=== PATIENT | male | born 1935 | race Caucasian/White ===

== ENCOUNTER 2017-03-01 12:45 | Inpatient (IN) | payer MEDICARE, BC ==
[~2017-03-01] VITALS: Ht 182.9 cm; Wt 86.5 kg
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
--- NOTE | ~2017-03-01 | OR ---
PATIENT'S NAME: CHANTE CAMARENA [facility] AGE: 82 Y [address] ROOM: [address] [address] LOCATION: [facility] ADMIT DATE: 03/01/2017 OR/Procedure Report DISCHARGE DATE: FAMILY PHYSICIAN: PHYSICIAN, UNKNOWN ATTENDING PHYSICIAN: TEJ JI SURGEON: Shaun Garcia MD MOUNTED POLICE OFFICER: None. DATE OF PROCEDURE: 03/02/2017 PREOPERATIVE DIAGNOSIS: Intertrochanteric fracture, right hip. POSTOPERATIVE DIAGNOSIS: Intertrochanteric fracture, right hip. PROCEDURE PERFORMED: Open reduction and internal fixation of right hip intertrochanteric fracture with intramedullary device (gamma nail). SURGEON: Shaun Garcia M.D. ANESTHESIA: Spinal. ESTIMATED BLOOD LOSS: Less than 100 mL. IMPLANTS: Synthes 125-degree mid-length trochanteric femoral nail with 40 mm distal interlocking screw. DRAINS: None. SPECIMEN: None. COMPLICATIONS: None. INDICATION FOR PROCEDURE: Please refer to my separately dictated consultation note. The patient presents with a right hip intertrochanteric fracture. Operative and nonoperative options have been reviewed. Potential adverse sequelae of the injury itself have been reviewed. Risks, benefits, limitations, and indications for surgery have been thoroughly reviewed and informed consent has been granted. We have specifically reviewed risks and implications of the following: Infection, malunion, nonunion, deep venous thrombosis, pulmonary embolism, mortality, neurovascular complications, blood transfusion risks, decubitus ulcer formation, pneumonia, avascular necrosis, and the potential need for further surgery (including the potential need for salvage with hip hemiarthroplasty versus total hip arthroplasty). We have discussed the necessity for 2 months of restricted weightbearing postoperatively. A preoperative internal medicine consultation has been obtained, and the patient has been medically cleared for surgery. PATIENT'S NAME: CHANTE CAMARENA [facility] AGE: 82 Y [address] ROOM: [address] [address] LOCATION: [facility] ADMIT DATE: 03/01/2017 OR/Procedure Report DISCHARGE DATE: FAMILY PHYSICIAN: PHYSICIAN, UNKNOWN ATTENDING PHYSICIAN: TEJ JI DESCRIPTION OF PROCEDURE: The patient was positioned supine on the fracture table after administration of anesthesia and prophylactic antibiotics. The correct side and anticipated procedure were confirmed via a verbal timeout including myself, the lye peel operator, and the circulating nurse. A well-padded groin post was placed. Both feet and ankles were well padded. The left foot was placed into a stirrup-type leg wick. The right foot was placed into a traction boot. Under fluoroscopic guidance, gentle longitudinal traction and internal rotation were applied across the fracture site through the right foot until a suitable reduction had been confirmed under AP and lateral fluoroscopic imaging. The lateral aspect of the right hip and thigh were scrubbed, prepped, and draped with vigilant sterile technique. The tip of the right greater trochanter was approached through a 5 cm direct lateral longitudinal incision. The iliotibial band was sharply divided longitudinally in line with the overlying skin incision. The tip of the right greater trochanter was palpated, and a cannulated awl was utilized to access the intramedullary canal of the proximal femur through the tip of the right greater trochanter. A ball tipped guidewire was placed through the awl and across the fracture site under fluoroscopic guidance, and the awl was subsequently removed. The cannulated entrance reamer was utilized through the appropriate soft tissue guide. The gamma nail was seated to the appropriate depth over the guidewire, and the guidewire was extracted. Fluoroscopic imaging confirmed appropriate position of the gamma nail. The outrigger guide and guide cannula were subsequently utilized to place a threaded-tipped guidewire centrally within the right femoral head and neck through a separate direct lateral 2 cm longitudinal incision. Appropriate position of the guidewire was confirmed under AP and lateral fluoroscopic imaging. Appropriate depth for the lag screw was measured. The cannulated reamer was set to the appropriate depth and fully seated through the appropriate soft tissue guide. The lag screw was seated to the appropriate depth under AP and lateral fluoroscopic guidance. The anti-rotational set screw was deployed. The outrigger guide and cannula were subsequently utilized to place the distal interlocking screw through a separate 5 mm direct lateral longitudinal incision. AP, lateral, and oblique fluoroscopic imaging of the right hip and right proximal femur confirmed appropriate position of all hardware and maintenance of an appropriate reduction of the fracture. PATIENT'S NAME: CHANTE CAMARENA [facility] AGE: 82 Y [address] ROOM: [address] [place] [id number] LOCATION: [facility] ADMIT DATE: 03/01/2017 OR/Procedure Report DISCHARGE DATE: FAMILY PHYSICIAN: PHYSICIAN, UNKNOWN ATTENDING PHYSICIAN: TEJ JI Each of the 3 incisions was thoroughly irrigated with bacteriostatic saline lavage. The fascia was closed with simple deep interrupted 0 Vicryl sutures. Each of the incisions was closed with superficial buried interrupted 2-0 Vicryl sutures and surgical gaviota. The dressings consisted of Xeroform gauze, sterile gauze, and occlusive tape. There were no complications. The patient was carefully transferred off the fracture table and transported to the postanesthesia care unit in stable condition. MD RAVIN DIOP/felice /[id number] d: 03/02/17 1147 t: 03/16/17 2144, OPERATIVE SUMMARY
--- NOTE | ~2017-03-01 | DS ---
PATIENT'S NAME: [facility]TE [facility] AGE: 82 Y [address] ROOM: [id number] [place], [place] [address] LOCATION: [facility] ADMIT DATE: 03/01/2017 Discharge Summary DISCHARGE DATE: 03/05/2017 FAMILY PHYSICIAN: Vicki Sharpe MD ATTENDING PHYSICIAN: Cecil Noriega CONSULTING PHYSICIANS: Shaun Garcia MD. PRIMARY CARE PROVIDER: Vicki Sharpe MD and Dr. Bautista. DISCHARGE DIAGNOSES: 1. Right hip fracture, status post open reduction internal fixation. 2. Diabetes mellitus type 2 with hyperglycemia. 3. Dyslipidemia. 4. Essential hypertension. 5. History of DVT. 6. Long-term anticoagulation, Coumadin. HOSPITAL COURSE: Please refer to admitting history and physical as dictated by Dr. Noriega. Briefly, the patient was admitted to [facility] after he sustained an injury with right hip fracture. Dr. Garcia was consulted. It was felt as though he should proceed with an ORIF of his right hip. The patient was on Coumadin therefore received one bag of FFP. The patient underwent ORIF of the right hip on 03/02/2017. He did well postoperatively. He was given 10 mg of Coumadin in Recovery, then resumed his home Coumadin dosing allowing his INR to trend upward. He was also placed on Lovenox 40 mg subcu for DVT prophylaxis. He is placed on an ADA diet. Postoperatively, he did have difficulty with pain. Physical Therapy and Occupational Therapy did see the patient. He did need encouragement to move. He was started on MiraLAX and Colace for his bowels. On 03/04/2017, he did develop postop abdominal distention. Abdominal x-ray showed a large amount of air and fecal material with no definite obstruction. He was given Dulcolax suppository and did have large bowel movements prior to discharge. It was felt as though he should have another Dulcolax suppository upon admit to [facility]. It was recommended to continue daily PT, INRs. His sugars were not well controlled. His metformin was increased to 1000 mg twice a daily. Upon discharge, he was also started on glyburide 2.5 mg p.o. daily. On 03/05/2017, the patient's vital signs were stable. His pain was controlled with Lolita. He is nonweightbearing to his right lower extremity. It is recommended that he sees Dr. Garcia in 7-9 days postoperatively. He was stable to transfer to [facility]. LABORATORY DATA: Sodium 137-140, potassium 4.3, fasting glucose 218, BUN 21, creatinine 1.0. AST 18, ALT 26, GFR greater than 60. CK-MB 3.5, CPK 223. Troponin less than 0.040. ProBNP 99, pre-albumin 28, hemoglobin A1c 8.8. PATIENT'S NAME: [facility] AGE: 82 Y [address] ROOM: [place] [address] LOCATION: [facility] ADMIT DATE: 03/01/2017 Discharge Summary DISCHARGE DATE: 03/05/2017 FAMILY PHYSICIAN: Vicki Sharpe MD ATTENDING PHYSICIAN: Cecil Noriega WBCs 7.1, hemoglobin 9.9, hematocrit 30.6, platelets 294. INR 3.0 on admit, trended down as low as 1.14. UA protein 15, glucose 1000, ketones 50, wbc 0- 2, bacteria negative. RADIOLOGY REPORTS: Chest x-ray preop revealed normal chest. KUB 03/04/2017 showed a large amount of air and fecal material throughout the colon. No definite obstruction. Scattered vascular calcifications were found. DISCHARGE INSTRUCTIONS: The patient will be discharged to [facility] Dr. Bautista to follow. Follow up with Dr. Shaun Garcia in 7-9 days postop. DIET: ADA. WEIGHTBEARING: Nonweightbearing right lower extremity. PT OT to evaluate and treat as indicated. Oxygen as needed to keep sats greater than 90%. Accu- Cheks a.c. and h.s. PT/INR daily. PCP to titrate Coumadin to goal INR 2.0 to 3.0. Discontinue Lovenox when INR greater than or equal to 2.0. Dulcolax suppository rectally upon arrival at [place] today. DRESSING CHANGES: No dressing changes. Please call with any signs of infection. Increased pain increased swelling drainage or erythema. REHAB POTENTIAL: Good. DISCHARGE POTENTIAL: Good. DISCHARGE MEDICATIONS: 1. Colace 100 mg p.o. twice daily. 2. Lovenox 40 mg subcu daily. Discontinue when INR greater than or equal to 2.0. 3. Pepcid 20 mg p.o. daily. 4. NovoLog sliding scale, moderate. 5. Glucophage 1000 mg p.o. twice daily. 6. MiraLAX 17 g p.o. twice daily. 7. Pravachol 40 mg p.o. daily. 8. Coumadin 5 mg p.o. daily. 9. Tylenol 500 to 1000 mg p.o. every 6 hours as needed for pain. 10. Glucagon 1 mg subcu for hypoglycemia. 11. Glucose 16 g p.o. for hypoglycemia. 12. Milk of magnesia 30 mL p.o. as needed for constipation. 13. Glyburide 2.5 mg p.o. daily. 14. Lolita 5/325 one or two tablets p.o. q.4 hours p.r.n. pain. Thank you for allowing us to participate in the care of this patient as he has been hospitalized at [facility]. PATIENT'S NAME: [facility] AGE: 82 Y [address] ROOM: [place] [address] LOCATION: [facility] ADMIT DATE: 03/01/2017 Discharge Summary DISCHARGE DATE: 03/05/2017 FAMILY PHYSICIAN: Vicki Sharpe MD ATTENDING PHYSICIAN: Cecil Noriega VIN RANGEL APRN FOR MD NAEEM VERGARA/modl /[id number] CC: MD Shaun Brice MD Lennie J Deaver, MD d: 03/06/17 1316 t: 03/10/17 1429, DISCHARGE SUMMARY
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
[2017-03-01 15:00] LABS: PROTIME 31.8 SECONDS (9.8-11.4)
[2017-03-01 15:00] LABS: BILIRUBIN URINE NEGATIVE (NEGATIVE); BLOOD URINE 25 /UL (NEGATIVE); COLOR URINE YELLOW (YELLOW); GLUCOSE URINE 1000 mg/dL (NEGATIVE); KETONE URINE 50 mg/dL (NEGATIVE); LEUKOCYTES URINE NEGATIVE /UL (NEGATIVE); NITRITE URINE NEGATIVE (NEGATIVE); PROTEIN URINE 15 mg/dL (NEGATIVE); TURBIDITY URINE CLEAR (CLEAR); UROBILINOGEN URINE NORMAL (NORMAL)
[2017-03-01 15:07] LABS: BACTERIA URINE NEGATIVE (NEGATIVE); EPITHELIAL URINE 0-2 #/HPF (NEGATIVE); RBC URINE 0-2 #/HPF (NEGATIVE); WBC URINE 0-2 #/HPF (NEGATIVE)
[2017-03-01 15:10] LABS: ALBUMIN 3.5 gm/dL (3.5-5.0); ALK PHOS 57 IU/L (33-138); ALT 26 IU/L (12-78); ANION GAP 14.3 (10.0-19.0); AST 18 IU/L (10-40); BLOOD UREA NITROGEN 21 mg/dL (6-24); CALCIUM 8.3 mg/dL (8.5-10.5); CHLORIDE 105 mMol/L (96-110); CO2 22 mMol/L (22-32); CPK 223 IU/L (35-332); ESTIMATED GFR (MDRD EQUATION) > 60; POTASSIUM 4.3 mMol/L (3.7-5.1); SODIUM 137 mMol/L (135-145); TOTAL BILIRUBIN 0.4 mg/dL (0.0-1.5); TOTAL PROTEIN 6.9 g/dL (6.0-8.4)
[2017-03-01] MEDS ORDERED: GLUCOPHAGE850 MG PO (17:02)
[2017-03-01] MEDS ORDERED: PRINIVIL (ZESTR20 MG PO (17:04)
[2017-03-01] MEDS ORDERED: COUMADIN ** IA5 MG PO (17:05)
[2017-03-01] MEDS ORDERED: PRAVACHOL40 MG PO (17:06)
[2017-03-02 04:50] LABS: INR - (THERAPEUTIC) 1.59 (0.92-1.07); PROTIME 16.8 SECONDS (9.8-11.4)
[2017-03-02 07:13] LABS: INR - (THERAPEUTIC) 1.37 (0.92-1.07); PROTIME 14.4 SECONDS (9.8-11.4)
[2017-03-03 09:17] LABS: INR - (THERAPEUTIC) 1.15 (0.92-1.07); PROTIME 12.1 SECONDS (9.8-11.4)
[2017-03-03 09:28] LABS: HEMATOCRIT 30.6 % (33.0-50.0); HEMOGLOBIN 9.9 g/dL (11.0-16.0)
[2017-03-04 05:34] LABS: INR - (THERAPEUTIC) 1.14 (0.92-1.07)
[2017-03-05 05:30] LABS: INR - (THERAPEUTIC) 1.17 (0.92-1.07); PROTIME 12.3 SECONDS (9.8-11.4)
== END 2017-03-05 12:45 | disposition swing bed (61) | DRG 481 ==
LOC: G3N 13:37
PROVIDERS: Internal Medicine; Orthopaedic Surgery; ADMIT Internal Medicine
PROC: 0QS606Z Reposition Right Upper Femur with Intramedullary Internal Fixation Device, Open Approach (ICD-10-PCS; principal; 2017-03-02)
PROC: 30233K1 Transfusion of Nonautologous Frozen Plasma into Peripheral Vein, Percutaneous Approach (ICD-10-PCS; 2017-03-04)
DX: S72.141A Displaced intertrochanteric fracture of right femur, initial encounter for closed fracture (principal); K56.7 Ileus, unspecified; E11.65 Type 2 diabetes mellitus with hyperglycemia; W55.22XA Struck by cow, initial encounter; I10 Essential (primary) hypertension; E78.5 Hyperlipidemia, unspecified; K59.00 Constipation, unspecified; R79.1 Abnormal coagulation profile; Z86.718 Personal history of other venous thrombosis and embolism; Z79.84 Long term (current) use of oral hypoglycemic drugs; Z23 Encounter for immunization
CPT/HCPCS: C1713; G0009; J0690; J1650; J2270; J2405; J7030; J7050; P9017

== ENCOUNTER → 2017-03-05 | Outpatient (CLI) | payer MEDICARE, BC ==
[~2017-03-05] MED LIST: COUMADIN ** IA5 MG PO; GLUCOPHAGE850 MG PO; PRAVACHOL40 MG PO; PRINIVIL (ZESTR20 MG PO
== END | disposition disaster alternative care site (69) ==
LOC: GAMB 12:48
DX: S72.001A Fracture of unspecified part of neck of right femur, initial encounter for closed fracture (principal); M25.551 Pain in right hip; E11.9 Type 2 diabetes mellitus without complications; I48.2 Chronic atrial fibrillation; I10 Essential (primary) hypertension; Z79.01 Long term (current) use of anticoagulants; Z79.4 Long term (current) use of insulin; Z79.899 Other long term (current) drug therapy; X58.XXXA Exposure to other specified factors, initial encounter
CPT/HCPCS: A0425; A0428